=== PATIENT | male | born 1945 | race Caucasian/White ===

== ENCOUNTER 2023-08-03 13:26 | Outpatient (AMB) | payer OTHER, SELFPAY ==
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
[2023-08-03 13:30] VITALS: BP 128/74; PULSE 65; O2SAT 98; BMI 26.9
== END 2023-08-03 15:13 | disposition home or self-care (01) ==
PROVIDERS: Visit Provider Nurse Practitioner Family
DX: G20.A1 Parkinson's disease without dyskinesia, without mention of fluctuations (principal); R41.3 Other amnesia; R51.9 Headache, unspecified; G47.50 Parasomnia, unspecified
CPT/HCPCS: 99204

== ENCOUNTER → 2023-08-03 13:26 | Outpatient (BNVA) | payer OTHER, SELFPAY | PROVIDERS: Visit Provider Nurse Practitioner Family | DX: G20.A1 Parkinson's disease without dyskinesia, without mention of fluctuations (principal); R41.3 Other amnesia; R51.9 Headache, unspecified; G47.50 Parasomnia, unspecified | CPT/HCPCS: 99202 ==

== ENCOUNTER 2023-10-09 07:36 | Outpatient (AMB) | payer OTHER, SELFPAY ==
--- NOTE | 2023-10-09 07:37 | MHC.OFFVIS ---
Intake Visit Reasons: 2 mo f/u-LVM Intake Note: patient has no issues today Allergies No Known Allergies Allergy (Verified 10/09/23 07:38) HPI Comments Details: Right-handed 77-yr-old male presents for f/u televideo visit via [employer] Pt is accompanied by his . Pt denies any significant interval medical history changes. They note that pt had continued to have a decline, but then about about 2 weeks ago, pt started doing better. His balance is better, but still off on uneven surfaces or at night when getting up to use the bathroom. states maybe they should put a cane by the bedside- which he has. They are curious about using low dose psilocybin for PD or white matter disease. Pt's current PD medication regimen: CD-LD 25-100mg was increased to 1 tab qid Do medication effects last between doses: Pt does not notice, but notices wearing off about an hour before the next dose. ADL's: Ind, a bit slow Swallowing: Mindful to chew, swallow well. Drooling:A little bit- right sided- during the day Orthostatic lightheadedness: None Constipation: None Urinary symptoms: Denies Tremor: None Dyskinesia: None Stiffness: Yes- he thought it was age related, but can do his activities Gait changes: as above Freezing: Denies, but needs to lean forward to keep the rhythm of his steps. Falls: None Mood: He feels mood is stable. The Sertraline dose is stable. notes some depression, flattening, but not as much anxiety- also note as engaged in a group conversation. Pt feels like maybe this is d/t disinterest and some dofficulties following the conversation. Hallucinations: None. But vivid dreams Memory: Some STM lapses, repeating himself. Needs cues and written notes Sleep: Sleeping well. Denies snoring or apneas. Exercise: More active outside now [facility] Medical History (Updated 08/21/23 @ 12:32 by OWEN Ramírez) Unilateral inguinal hernia History of colonic polyps History of Lyme disease H/O babesiosis Surgical History H/O hernia repair H/O shoulder surgery H/O arthroscopic knee surgery Hx of tonsillectomy Hx of appendectomy Family History Father Heart disease Mother Heart disease Brother Heart disease Brother Heart disease Social History Alcohol intake: former Patient Tobacco Use Status: Never used Tobacco Review of Systems Const All systems reviewed & are unremarkable except as noted in HPI and below Physical Exam Const General: cooperative and no acute distress Resp Effort & Inspection: normal respiratory effort and able to speak in complete sentences Neuro Other: General: A&O x's 3, no significant STM lapses Expression: Mild dreacreased expression Voice: Ok Telehealth Telehealth Telehealth Platform: Telephone Location of provider rendering services: practice address Location of patient: address on file Patient Identification confirmed using: Name, : Yes Telehealth method: voice only Patient verbally consented to treatment: Yes Patient verbally consented to billing insurance company: Yes Patient informed of any privacy concerns related to visit: Yes Assessment & Plan Assessment & Plan (1) Parkinson's disease without dyskinesia: Code(s): G20.A1 - Parkinson's disease without dyskinesia, without mention of fluctuations Category: Medical (2) Memory difficulties: Code(s): R41.3 - Other amnesia Category: Medical (3) 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 I am open to reviewing any of the studies that the pt has read. Continue CD-LD 25-100mg 25-100mg- 1 tab QID. Pt advised to undergo baseline neuro-psych evaluation to better understand degree of cognitive deficits. Pt denies snoring or apneas. Pt believes he has had comprehensive lab work-up already, but will check w/ his PCP at upcoming appt. If not done, would advise: CBC,, CMP, B-12, folate, Methylmalonic acid and Homocysteine levels, vit D, ESR, CRP, HIV, RPR, GIL and RF. Concur with using cane at night and prn. Stressed importance of regular physical activity, socialization, cognitively stimulating activities for overall management of Parkinson's. Future considerations: Disha scan. f/u as scheduled in Jan. Orders: Referrals Neuropsychiatry Referral G20.A1 - Parkinson's disease without dyskinesia, without mention of fluctuations, G47.50 - Parasomnia, unspecified, R41.3 - Other amnesia Coding Level of Care Code Tele Est Pt Level 4 (36929) Diagnoses Parkinson's disease without dyskinesia G20.A1 Memory difficulties R41.3 Parasomnia G47.50
== END 2023-10-09 09:42 | disposition home or self-care (01) ==
LOC: HO.HSMS 07:37
PROVIDERS: Visit Provider Nurse Practitioner Family
DX: G20.A1 Parkinson's disease without dyskinesia, without mention of fluctuations (principal); R41.3 Other amnesia; G47.50 Parasomnia, unspecified
CPT/HCPCS: 99214

== ENCOUNTER → 2023-10-09 07:36 | Outpatient (BNVA) | payer OTHER, SELFPAY | PROVIDERS: Visit Provider Nurse Practitioner Family ==

== ENCOUNTER 2024-01-22 10:57 | Outpatient (AMB) | payer OTHER, SELFPAY ==
[2024-01-22 11:09] VITALS: BP 122/70; BMI 25.8
--- NOTE | 2024-01-22 11:09 | A.OFFVIS_ITS ---
Vital Signs 01/22/24 11:09 Height 6 ft Weight 190 lb BMI 25.8 BP 122/70 Blood Pressure Location Rt brachial Position Sitting Intake Visit Reasons: 3 mo f/u Intake Note: Patient presents for 3 month follow up. memory and balance are an issues getting up from bed makes him dizzy. swallowing becoming and issue and voice getting much softer and trailing off. Allergies No Known Allergies Allergy (Verified 01/22/24 11:13) Medication List - Last Reconciled 01/22/24 by OWEN Ramírez amlodipine 2.5 mg PO DAILY apixaban (Eliquis) 5 mg PO BID carbidopa-levodopa 25-100 mg 1 tab PO TID cholecalciferol (vitamin D3) 50 mcg PO DAILY coenzyme Q10 10 mg PO TID mecobalamin (vitamin B12) mcg PO metformin 500 mg PO DAILY rosuvastatin 20 mg PO DAILY sertraline 100 mg PO DAILY HPI Comments Details: 78 -yr-old male presents for f/u visit. Pt is accompanied by his , Maggy. Pt had recent hospitalization for new-onset a-fib. He has been started on Eliquis and currently wearing a heart monitor. Pt's primary concern is STM issues. Pt's current PD medication regimen: CD-LD 25-100mg was increased to 1 tab qid- initially was helpful but effect as waned. Can cause him to feel crummy if taken w/o food. They wonder if there is any effect from CD-LD- possibly wondering if he should take less. Using Psilocybin small doses at times. Do medication effects last between doses: Pt does not notice. General: Lack of energy. ADL's: Ind, a bit slow Voice: so far and trailing off more. Swallowing: Has to be more mindful to chew, swallow well. Drooling:A little bit- right sided- during the day Orthostatic lightheadedness: Denies orthostatic lightheadedness. He is feeling an external spinning sensation a/w nausea- usually when getting out of bed or turning over in bed. Constipation: None Urinary symptoms: Some urinary frequency, nocturia. Tremor: One episode of random-episode of RUE Dyskinesia: None Stiffness: Yes- he thought it was age related, but can do his activities Gait changes: Legs feel heavy, shorter steps. Left foot may turn inward. Freezing: Denies, but needs to lean forward to keep the rhythm of his steps. Falls: None Hallucinations: None. But vivid dreams Memory/mood: STM lapses, can forget a conversation from about a 1/2 hr before. He started using Sertraline helping w/ anxiety. They are using a white board to help w/ reminders. Someone comes by daily when his is at work. Sleep: Has more active dreams, recently fell out of bed during a dream. Exercise: Doing BIG exercises. Not walking the dog as much. [facility] Medical History Unilateral inguinal hernia History of colonic polyps History of Lyme disease H/O babesiosis Surgical History H/O hernia repair H/O shoulder surgery H/O arthroscopic knee surgery Hx of tonsillectomy Hx of appendectomy Family History Father Heart disease Mother Heart disease Brother Heart disease Brother Heart disease Social History Alcohol intake: former Patient Tobacco Use Status: Never used Tobacco Review of Systems Const All systems reviewed & are unremarkable except as noted in HPI and below Physical Exam Vital Signs: Last Vital Signs BP 122/70 01/22/24 11:09 BMI result Body Mass Index 25.8 Const General: cooperative and no acute distress Resp Effort & Inspection: normal respiratory effort and able to speak in complete sentences Neuro Other: General: Alert and oriented x3 Expression: Mildly decreased expression and blink Voice: Softer Tremor: Not observed today Tone: Mild BUE tone Dyskinesia: None FFM: Slightly decreased on right Foot taps: Slightly decreased in right Gait: Decreased arm swing, slight stoop, shorter steps, unsteady during turn. Psych: Pleasant affect Assessment & Plan Assessment & Plan (1) Parkinson's disease without dyskinesia: Code(s): G20.A1 - Parkinson's disease without dyskinesia, without mention of fluctuations Category: Medical (2) Dysphagia: Code(s): R13.10 - Dysphagia, unspecified Category: Medical (3) BPPV (benign paroxysmal positional vertigo): Code(s): H81.10 - Benign paroxysmal vertigo, unspecified ear Category: Medical Plan Reviewed that there is no strong evidence for psilocybin in PD and that it is currently not legalized for this indication. I am open to reviewing any of the studies that the pt has read. Reviewed reasonable expectations of benefit from CD-LD use. Increase CD-LD 25-100mg 25-100mg- from 1 tab QID to 1.5 tabs qid (may increase by 1/2 tab q week up to 1.5 tabs qid) Will refer pt for [facility] [facility] eval & tx for his PD s/s of dysphagia and hypophonia [facility] Pt requests referral to [facility]- order placed. Undergo baseline neuro-psych evaluation to better understand degree of cognitive deficits- as ordered Pt denies snoring or apneas. If not already done, would advise: CBC,, CMP, B-12, folate, Methylmalonic acid and Homocysteine levels, vit D, ESR, CRP, HIV, RPR, GIL and RF. Concur with using cane at night and prn. Continue to optimize regular physical activity, socialization, cognitively stimulating activities for overall management of Parkinson's. Reviewed pros/cons of DaTscan- at this time no clear indication for DaTscan. ? f/u in 6 months or sooner prn. Orders: Orders PT Evaluation and Treatment Today H81.10 - Benign paroxysmal vertigo, unspecified ear Referrals Integrative Medicine Referral G20.A1 - Parkinson's disease without dyskinesia, without mention of fluctuations Speech and Hearing Referral G20.A1 - Parkinson's disease without dyskinesia, without mention of fluctuations, R13.10 - Dysphagia, unspecified Medications: Changed From carbidopa-levodopa 25-100 mg 1 tab PO TID To carbidopa-levodopa 25-100 mg 1.5 tabs PO QID 90 days 540 tabs 1RF Scribe Plan - Not visible on output: Discussed importance of regular physical activity for management of PD s/s, such as walking, cycling, boxing. Discussed benefits of dopaminergic therapies, such as reduced tremor and improved motor symptoms. Discussed potential adverse effects of dopaminergic therapies, including but not limited to nause/GI upset, orthostatic lightheadedness, dyskineisas, sleepiness, hallucinations. Pt is advised to establish care with a surgical endoscopist due to slight increase risk of melanoma seen in patient's with Parkinson's disease. Coding Level of Care Code Est Pt Level 4 ([id number]) Complex EM visit Add On G2211 Diagnoses Parkinson's disease without dyskinesia G20.A1 Dysphagia R13.10 BPPV (benign paroxysmal positional vertigo) H81.10
== END 2024-01-22 12:41 | disposition home or self-care (01) ==
PROVIDERS: Visit Provider Nurse Practitioner Family
DX: G20.A1 Parkinson's disease without dyskinesia, without mention of fluctuations (principal); R13.10 Dysphagia, unspecified; H81.10 Benign paroxysmal vertigo, unspecified ear
CPT/HCPCS: 99214; G2211

== ENCOUNTER → 2024-01-22 10:57 | Outpatient (BNVA) | payer OTHER, SELFPAY | PROVIDERS: Visit Provider Nurse Practitioner Family | DX: G20.A1 Parkinson's disease without dyskinesia, without mention of fluctuations (principal); R13.10 Dysphagia, unspecified; H81.10 Benign paroxysmal vertigo, unspecified ear | CPT/HCPCS: 99212 ==

== ENCOUNTER 2024-08-05 09:37 | Outpatient (AMB) | payer OTHER, SELFPAY ==
[2024-08-05 09:43] VITALS: BP 138/78; PULSE 71; O2SAT 100; BMI 26.6
--- NOTE | 2024-08-05 09:43 | A.OFFVIS_ITS ---
Vital Signs 08/05/24 09:43 Height 6 ft Weight 196 lb BMI 26.6 BP 138/78 Blood Pressure Location Rt brachial Position Sitting Pulse 71 Pulse Source Pulse Oximeter Pulse Oximetry (%) 100 Oxygen Delivery Method Room Air Intake Visit Reasons: Follow up Intake Note: Patient presents follow up Parkinson's medication. LVM for [facility]speech if patient was seen to get office note. Allergies No Known Allergies Allergy (Verified 08/05/24 09:45) Medication List - Last Reconciled 08/05/24 by OWEN Ramírez amlodipine 2.5 mg PO DAILY apixaban (Eliquis) 5 mg PO BID carbidopa-levodopa 25-100 mg 1.5 tabs PO QID 90 days cholecalciferol (vitamin D3) 50 mcg PO DAILY coenzyme Q10 10 mg PO TID mecobalamin (vitamin B12) mcg PO metformin 500 mg PO DAILY rosuvastatin 20 mg PO DAILY sertraline 100 mg PO DAILY HPI Comments Details: 78 -yr-old male presents for f/u visit. Pt is accompanied by his , Maggy. Pt denies any significant medical history changes. He states he is overall stable. Pt's current PD medication regimen: CD-LD 25-100mg 1.5 tabs qid. using psilocybin micro-dosed prn.. Do medication effects last between doses: Pt does not notice. General: Lack of energy. ADL's: Ind, a bit slow Voice: soft. did [employer]- was given exercises which were helpful- but he has not been doing them recently. Swallowing: Is mindful to chew and swallow well- may cough at times. Drooling:A little bit in the corners of his mouth. Orthostatic lightheadedness: He may have some orthostatic lightheadedness. Tries to stand slowly. He endorses not right in space sensation- but not as much room spinning dizziness. . Did vestibular PT, as dizziness had subsided Fluid intake- tries to drink at least 2 quarts of water as well as coffee, tea, wine. He does not add salt to any food. Constipation: None Urinary symptoms: Some increased urinary frequency, nocturia- a couple of times a night. . Tremor: A few times has felt internal tremor when trying to sleep. Dyskinesia: None Stiffness: Yes- states he has always been stiff. Gait changes: Legs feel heavy, shorter steps. Left foot may turn inward. Freezing: Denies, but needs to lean forward to keep the rhythm of his steps. Falls: None- but has felt like he could fall. Hallucinations: None. But vivid dreams Memory/mood: STM lapses and less so LTM deficits. Sertraline dose increase is helping w/ anxiety. They are using a white board to help w/ reminders. Someone comes by daily when his is at work. Sleep: He believes he is sleeping ok- not sure how restful his sleep is, wakes up tired. Wakes up to void and the cat wakes him up. He is waking up earlier. Patient denies snoring or apneas-they are not interested in doing the sleep study at this time. Exercise: He does his BIG exercises now just once a week. Walking his dogs every day [facility] Medical History Unilateral inguinal hernia History of colonic polyps History of Lyme disease H/O babesiosis Surgical History H/O hernia repair H/O shoulder surgery H/O arthroscopic knee surgery Hx of tonsillectomy Hx of appendectomy Family History Father Heart disease Mother Heart disease Brother Heart disease Brother Heart disease Social History Alcohol intake: former Patient Tobacco Use Status: Never used Tobacco Physical Exam Vital Signs: Last Vital Signs Pulse 71 08/05/24 09:43 BP 138/78 08/05/24 09:43 Pulse Ox 100 08/05/24 09:43 Oxygen Delivery Method Room Air 08/05/24 09:43 BMI result Body Mass Index 26.6 Const General: cooperative and no acute distress Resp Effort & Inspection: normal respiratory effort and able to speak in complete sentences Neuro Other: General: Alert and oriented x3 Expression: Mildly decreased expression and blink Voice: Softer Tremor: Not observed today Tone: Mild BUE tone Dyskinesia: None FFM: Decreased Foot taps: Decreased Gait: Decreased arm swing, slight stoop, shorter steps, overall steady with cane Psych: Pleasant affect Assessment & Plan Assessment & Plan (1) Parkinson's disease without dyskinesia: Code(s): G20.A1 - Parkinson's disease without dyskinesia, without mention of fluctuations Category: Medical (2) Dysphagia: Code(s): R13.10 - Dysphagia, unspecified Category: Medical (3) BPPV (benign paroxysmal positional vertigo): Comment: resolved Code(s): H81.10 - Benign paroxysmal vertigo, unspecified ear Category: Medical Plan Reviewed again there is no strong evidence for psilocybin in PD and that it is currently not legalized for this indication. I am open to reviewing any of the studies that the pt has read. Continue CD-LD 25-100mg 25-100mg- 1.5 tabs qid. Encouraged to resume [employer] exercises for dysphagia and hypophonia Will discontinue vestibular eval & tx order- as this has resolved. Order previously placed for [facility]- her patient request Undergo baseline neuro-psych evaluation to better understand degree of cognitive deficits- as ordered Monitor sleep-if symptoms worsen, consider ordering a sleep study. [facility] If not already done, would advise: CBC,, CMP, B-12, folate, Methylmalonic acid and Homocysteine levels, vit D, ESR, CRP, HIV, RPR, GIL and RF. Concur with using cane as needed. Increase regular physical activity, socialization, cognitively stimulating activities for overall management of Parkinson's. Reviewed pros/cons of DaTscan- at this time no clear indication for DaTscan. ? f/u in 6 months or sooner prn. Medications: Refilled carbidopa-levodopa 25-100 mg 1.5 tabs PO QID 540 tabs 1RF 90 days Coding Level of Care Code Est Pt Level 4 (58183) Complex EM visit Add On G2211 Diagnoses Parkinson's disease without dyskinesia G20.A1 Dysphagia R13.10 BPPV (benign paroxysmal positional vertigo) H81.10
== END 2024-08-05 10:48 | disposition home or self-care (01) ==
LOC: HO.HSMS 09:38
PROVIDERS: Visit Provider Nurse Practitioner Family
DX: G20.A1 Parkinson's disease without dyskinesia, without mention of fluctuations (principal); R13.10 Dysphagia, unspecified; H81.10 Benign paroxysmal vertigo, unspecified ear
CPT/HCPCS: 99214; G2211

== ENCOUNTER → 2024-08-05 09:37 | Outpatient (BNVA) | payer OTHER, SELFPAY | PROVIDERS: Visit Provider Nurse Practitioner Family | DX: G20.A1 Parkinson's disease without dyskinesia, without mention of fluctuations (principal); R13.10 Dysphagia, unspecified; H81.10 Benign paroxysmal vertigo, unspecified ear | CPT/HCPCS: 99212 ==